=== PATIENT | female | born 1960 | race African-American/Black ===

== ENCOUNTER 2017-10-13 19:36 | Emergency (ER) | payer BC, MEDICAID ==
[2017-10-13] VITALS (9 sets, daily range): BP systolic 98–132; BP diastolic 32–67
[~2017-10-13] VITALS: Ht 170.2 cm; Wt 61.2 kg
[~2017-10-13 19:36] MED LIST: VITAMINS
[2017-10-13] MEDS ORDERED: Sodium Chloride 500ML 500 ML IVPB ONE ×2 (20:00→22:00)
[2017-10-13 20:06] LABS: MEAN CORPUSCULAR HEMOGLOBIN 31.3 PG (27.0-31.0); MEAN CORPUSCULAR HGB CONC 31.5 G/DL (32.0-36.0); MEAN CORPUSCULAR VOLUME 99 FL (80-99); MEAN PLATELET VOLUME 6.2 FL (6.5-10.1); PLATELET COUNT 270 K/UL (150-450); RED CELL DISTRIBUTION WIDTH 11.8 % (11.6-14.8); WHITE BLOOD COUNT 4.3 K/UL (4.8-10.8)
[2017-10-13 20:25] LABS: ANION GAP 8 mmol/L (5-15); CALCIUM 9.2 MG/DL (8.5-10.1); CARBON DIOXIDE 29 MMOL/L (21-32); CHLORIDE 104 MMOL/L (98-107); CREATININE 0.7 MG/DL (0.55-1.30); GLOMERULAR FILTRATION RATE > 60 mL/min (>60); POTASSIUM 4.2 MMOL/L (3.5-5.1); SODIUM 141 MMOL/L (136-145)
[2017-10-13 20:38] LABS: ALANINE AMINOTRANSFERASE 21 U/L (12-78); ALBUMIN/GLOBULIN RATIO 1.3 (1.0-2.7); ASPARTATE AMINO TRANSFERASE 23 U/L (15-37); CKMB 0.5 NG/ML (0.0-3.6); TOTAL PROTEIN 6.9 G/DL (6.4-8.2)
[2017-10-13 21:12] LABS: BASOPHILS % (MANUAL) 1 % (0-2); EOSINOPHILS % (MANUAL) 2 % (0-3); LYMPHOCYTES % (MANUAL) 57 % (20-45); NEUTROPHILS % (MANUAL) 30 % (45-75); TOTAL CELLS COUNTED 100
[2017-10-13 21:13] LABS: ANISOCYTOSIS 1+; BAND NEUTROPHILS % (MANUAL) 0 % (0-8); HYPOCHROMASIA 1+; PLATELET ESTIMATE ADEQUATE; PLATELET MORPHOLOGY NORMAL
--- NOTE | 2017-10-13 22:54 | Emergency Room Report ---
History of Present Illness General Chief Complaint: Generalized Weakness Source: Patient Present Illness HPI Patient is a 57-year-old female brought in by EMS after a syncopal episode. Patient was feeling lightheaded prior to syncope. Patient states that she has multiple syncopal episodes in the past. The patient was having a small amount of alcohol earlier in the day. She denies or frequent alcohol use. The patient says she has prior history of mitral valve prolapse . Patient was noted been hypotensive and bradycardic by EMS prior to arrival. The patient was given IV fluids with some improvement in her blood pressure and heart rate Allergies: Coded Allergies: ACETAMINOPHEN (Verified Allergy, Unknown, 10/13/17) OXYCODONE (Verified Allergy, Unknown, 10/13/17) PROPOXYPHENE (Verified Allergy, Unknown, 10/13/17) Patient History Past Medical History: see triage record Nursing Documentation-H Hx Cardiac Problems: Yes - PROLAPSE VALVE Review of Systems All Other Systems: negative except mentioned in HPI Physical Exam Vital Signs Date Time Temp Pulse Resp B/P (MAP) Pulse Ox O2 Delivery O2 Flow Rate FiO2 10/13/17 19:30 97.9 66 14 103/67 100 Room Air Sp02 EP Interpretation: reviewed, normal General Appearance: normal inspection, well appearing, no apparent distress, alert, GCS 15 Head: atraumatic ENT: normal ENT inspection, hearing grossly normal, normal voice Neck: normal inspection, full range of motion, supple, no bony tend Respiratory: normal inspection, lungs clear, normal breath sounds, no respiratory distress, no retraction, no wheezing Cardiovascular #1: regular rate, rhythm, no edema Gastrointestinal: normal inspection, normal bowel sounds, non tender, soft, no guarding, no hernia Genitourinary: no CVA tenderness Musculoskeletal: normal inspection, back normal, normal range of motion Neurologic: normal inspection, alert, responsive, speech normal Psychiatric: normal inspection, judgement/insight normal, mood/affect normal Skin: normal inspection, normal color, no rash Medical Decision Making Diagnostic Impression: Primary Impression: Syncope, vasovagal Additional Impression: Mitral valve prolapse ER Course Patient presented for syncope. Differential diagnosis included but was not limited to arrhythmia, orthostatic hypotension, hypovolemia, vasovagal, anemia among others.Because of complexity of patient's case laboratory testing and imaging studies were ordered. Laboratory testing was unremarkable. Patient was given IV fluids with improvement in her blood pressure in heart rate. The patient was offered admission but she stated she wanted to go home. Patient was advised followup with cardiology for reexamination. The patient is advised to follow up with primary care doctor in 1-2 days. Patient is advised to return if any worsening condition or if any changes in status that are concerning. Labs Test 10/13/17 19:47 White Blood Count 4.3 K/UL (4.8-10.8) Red Blood Count 3.60 M/UL (4.20-5.40) Hemoglobin 11.3 G/DL (12.0-16.0) Hematocrit 35.8 % (37.0-47.0) Mean Corpuscular Volume 99 FL (80-99) Mean Corpuscular Hemoglobin 31.3 PG (27.0-31.0) Mean Corpuscular Hemoglobin Concent 31.5 G/DL (32.0-36.0) Red Cell Distribution Width 11.8 % (11.6-14.8) Platelet Count 270 K/UL (150-450) Mean Platelet Volume 6.2 FL (6.5-10.1) Neutrophils (%) (Auto) % (45.0-75.0) Lymphocytes (%) (Auto) % (20.0-45.0) Monocytes (%) (Auto) % (1.0-10.0) Eosinophils (%) (Auto) % (0.0-3.0) Basophils (%) (Auto) % (0.0-2.0) Differential Total Cells Counted 100 Neutrophils % (Manual) 30 % (45-75) Lymphocytes % (Manual) 57 % (20-45) Monocytes % (Manual) 10 % (1-10) Eosinophils % (Manual) 2 % (0-3) Basophils % (Manual) 1 % (0-2) Band Neutrophils 0 % (0-8) Platelet Estimate Adequate Platelet Morphology Normal Hypochromasia 1+ Anisocytosis 1+ Sodium Level 141 MMOL/L (136-145) Potassium Level 4.2 MMOL/L (3.5-5.1) Chloride Level 104 MMOL/L (98-107) Carbon Dioxide Level 29 MMOL/L (21-32) Anion Gap 8 mmol/L (5-15) Blood Urea Nitrogen 14 mg/dL (7-18) Creatinine 0.7 MG/DL (0.55-1.30) Estimat Glomerular Filtration Rate > 60 mL/min (>60) Glucose Level 123 MG/DL (74-106) Calcium Level 9.2 MG/DL (8.5-10.1) Total Bilirubin 0.2 MG/DL (0.2-1.0) Aspartate Amino Transf (AST/SGOT) 23 U/L (15-37) Alanine Aminotransferase (ALT/SGPT) 21 U/L (12-78) Alkaline Phosphatase 50 U/L (46-116) Total Creatine Kinase 72 U/L (26-308) Creatine Kinase MB 0.5 NG/ML (0.0-3.6) Creatine Kinase MB Relative Index 0.6 Troponin I 0.000 ng/mL (0.000-0.056) Pro-B-Type Natriuretic Peptide 27 pg/mL (0-125) Total Protein 6.9 G/DL (6.4-8.2) Albumin 3.9 G/DL (3.4-5.0) Globulin 3.0 g/dL Albumin/Globulin Ratio 1.3 (1.0-2.7) Last Vital Signs Date Time Temp Pulse Resp B/P (MAP) Pulse Ox O2 Delivery O2 Flow Rate FiO2 10/13/17 22:40 63 12 123/57 100 Room Air 10/13/17 22:14 97.9 Status: improved Disposition: HOME, SELF-CARE Condition: Stable Patient Instructions: Syncope, [id number] Elder Richey Oct 13, 2017 22:54
--- NOTE | 2017-10-14 09:06 | Diagnostic Imaging Report ---
Indication: SOB Technique: One view of the chest Comparison: none Findings: Lungs and pleural spaces are clear. Heart size is normal. Impression: No acute process
--- NOTE | 2017-11-01 14:49 | Cardiology Report ---
APPROVED REPORT EKG Measurement Heart [id number] Normal sinus rhythm Normal ECG
== END 2017-10-13 22:52 | disposition home or self-care (01) ==
LOC: EDBD 19:36 → EMR 20:00
DX: R55 Syncope and collapse (principal); I34.1 Nonrheumatic mitral (valve) prolapse; R42 Dizziness and giddiness; Z88.6 Allergy status to analgesic agent; Z88.8 Allergy status to other drugs, medicaments and biological substances
CPT/HCPCS: 36415; 71010; 80053; 82550; 82553; 83880; 84484; 85007; 85025; 93005; 96360; 96361; 99284